=== PATIENT | female | born 1965 | race Caucasian/White ===

== ENCOUNTER 2018-03-25 09:35 | Emergency (ER) | payer OTHER ==
--- NOTE | 2018-03-25 10:26 | ED Physician Documentation ---
PD HPI UPPER EXT INJURY - Stated complaint Stated Complaint: GLF/R SHOULDER INJ - Chief complaint Chief Complaint: Ext Problem - History obtained from History obtained from: Patient, Family - History of Present Illness Location: Right, Shoulder Type of injury: Fall Where injury occurred: Home Timing - onset: Last night Timing - duration: Hours Timing - details: Abrupt onset, Still present Improved by: Rest, Immobilization Worsened by: Moving, Palpating Associated symptoms: No: Weakness, Numbness, Tingling, Swelling Contributing factors: No: Anticoagulated Similar symptoms before: Has not had sx before Recently seen: Not recently seen - Additonal information Additional information: 52-year-old woman was walking out of her washroom when she fell forward onto her right arm and she complains of pain in her proximal humerus and pain if she tries to move the arm at all. She has normal sensation distally she states she also hurt her chest wall when she fell and she did not get knocked out. She was unable to sleep last night secondary to pain anytime she moved around. Review of Systems Constitutional: denies: Fever, Chills Eyes: denies: Decreased vision Ears: denies: Ear pain Nose: denies: Congestion Throat: denies: Sore throat Cardiac: reports: Chest pain / pressure. denies: Palpitations Respiratory: denies: Dyspnea, Cough GI: denies: Abdominal Pain, Nausea, Vomiting : denies: Dysuria, Frequency Skin: denies: Rash Musculoskeletal: reports: Extremity pain. denies: Neck pain, Back pain Neurologic: denies: Generalized weakness, Focal weakness, Numbness PD PAST MEDICAL HISTORY - Present Medications Home Medications: Ambulatory Orders Medication Instructions Recorded Confirmed Acetaminophen 03/25/18 Hydrocodone/Acetaminophen 1 - 2 each PO Q6H PRN #14 tablet 03/25/18 [Hydrocodon-Acetaminophen 5-325] - Allergies Allergies/Adverse Reactions: Allergies Allergy/AdvReac Type Severity Reaction Status Date / Time codeine AdvReac Nausea Verified 03/25/18 10:03 PD ED PE NORMAL - Vitals Vital signs reviewed: Yes (hypertensive ) - General General: Alert and oriented X 3, No acute distress, Well developed/nourished, Other (middle aged woman holding her right arm in flexion at her side. ) - HEENT HEENT: Atraumatic, PERRL, EOMI - Neck Neck: Supple, no meningeal sign, No bony TTP - Cardiac Cardiac: RRR, No murmur - Respiratory Respiratory: No respiratory distress, Clear bilaterally, Other (There is pain to palpation of the chest wall anteriorly ) - Abdomen Abdomen: Soft, Non tender - Back Back: No CVA TTP, No spinal TTP - Derm Derm: Normal color, Warm and dry, No rash - Extremities Extremities: No deformity, No edema, Other (There is point tenderness to palpation of the right arm and with any movement of the arm. ) - Neuro Neuro: Alert and oriented X 3, outbound sales consultant 2-12 intact, No motor deficit, No sensory deficit, Normal speech Eye Opening: Spontaneous Motor: Obeys Commands Verbal: Oriented GCS Score: 15 - Psych Psych: Normal mood, Normal affect Results - Vitals Vitals: Vital Signs - 24 hr 03/25/18 09:58 Temperature 36.0 C L Heart Rate 53 L Respiratory 16 Rate Blood Pressure 146/86 H O2 Saturation 97 Oxygen O2 Source Room air - Rads (name of study) right shoulder Radiology: Prelim report reviewed (Impression: No fracture or dislocation.), EMP read indepedently, See rad report 2 veiw chest Radiology: Prelim report reviewed, EMP read indepedently, See rad report PD MEDICAL DECISION MAKING - ED course Complexity details: reviewed results, re-evaluated patient, considered differential, d/w patient, d/w family ED course: 52-year-old female with a ground-level fall onto her right side has sprained her right shoulder there is no evidence for fracture of the proximal humerus she is placed into a sling. She also contused her chest wall and there is no evidence of fracture of the sternum on plain film. Departure - Departure Disposition: 01 Home, Self Care Clinical Impression: Sprain of right shoulder Qualifiers: Encounter type: initial encounter Shoulder sprain type: unspecified sprain Qualified Code(s): S43.401A - Unspecified sprain of right shoulder joint, init ial encounter Contusion, chest wall Qualifiers: Encounter type: initial encounter Laterality: unspecified laterality Qualified Code(s): S20.219A - Contusion of unspecified front wall of thorax, initial encounter Condition: Stable Instructions: ED Contusion Chest Wall, ED Sprain Shoulder Follow-Up: [facility] [Provider Group] [facility] [Provider Group] [facility] [Provider Group] Prescriptions: Hydrocodone/Acetaminophen [Hydrocodon-Acetaminophen 5-325] 1 - 2 each PO Q6H PRN #14 tablet PRN Reason: pain
--- NOTE | 2018-03-25 11:01 | XRAY Report ---
Reason: fall Procedure Date: 03/25/2018 Accession Number: [id number] / [id number] Procedure: XR - Shoulder 3 View RT CPT Code: FULL RESULT: EXAM: RIGHT SHOULDER RADIOGRAPHY EXAM DATE: 03/25/2018 10:49 AM. CLINICAL HISTORY: Fall. COMPARISON: None. TECHNIQUE: 3 views. FINDINGS: Bones: Normal. No fracture or bone lesion. Joints: The glenohumeral and acromioclavicular joints are normal. Soft tissues: The visualized hemithorax is unremarkable. No soft tissue swelling. IMPRESSION: No fracture or dislocation. RADIA
--- NOTE | 2018-03-25 11:02 | XRAY Report ---
Reason: fall anterior chest pain Procedure Date: 03/25/2018 Accession Number: [id number] / [id number] Procedure: XR - Chest 2 View X-Ray CPT Code: 29730 FULL RESULT: EXAM: CHEST RADIOGRAPHY EXAM DATE: 03/25/2018 10:49 AM. CLINICAL HISTORY: Fall anterior chest pain. COMPARISON: None. TECHNIQUE: 2 views. FINDINGS: Lungs/Pleura: No focal opacities evident. No pleural effusion. No pneumothorax. Normal volumes. Mediastinum: Heart and mediastinal contours are unremarkable. Other: None. IMPRESSION: No acute cardiopulmonary abnormality. RADIA
[2018-03-25 11:42] VITALS: BP 138/84
== END 2018-03-25 11:42 | disposition home or self-care (01) ==
LOC: ED 09:35 → MERGE 09:35 → ED 11:42
DX: S43.401A Unspecified sprain of right shoulder joint, initial encounter (principal); S20.219A Contusion of unspecified front wall of thorax, initial encounter; W01.0XXA Fall on same level from slipping, tripping and stumbling without subsequent striking against object, initial encounter; Y93.01 Activity, walking, marching and hiking; Y92.009 Unspecified place in unspecified non-institutional (private) residence as the place of occurrence of the external cause
CPT/HCPCS: 71046; 99283

== ENCOUNTER 2018-07-15 12:35 | Outpatient (CLI) | payer OTHER ==
--- NOTE | 2018-07-15 17:06 | MRI Report ---
Reason: SHOULDER PAIN,RIGHT,CHRONIC Procedure Date: 07/15/2018 Accession Number: [id number] / [id number] Procedure: MRI - Shoulder RT W/O CPT Code: FULL RESULT: EXAM: RIGHT SHOULDER MRI WITHOUT CONTRAST EXAM DATE: 07/15/2018 01:56 PM. CLINICAL HISTORY: Chronic right shoulder pain. Previous fall 4 months ago. COMPARISON: None. TECHNIQUE: Multiplanar, multisequence T1-weighted and fluid-sensitive sequences of the shoulder without contrast. Other: None. FINDINGS: Acromioclavicular Region: The acromion is type I. Marginal osteophytes at the distal end of the clavicle and at the medial aspect of the acromion. Tiny subcortical cysts at the medial aspect of the acromion. The coracoacromial and coracoclavicular ligaments are intact. Small amount of fluid at the subacromial subdeltoid bursa. Glenohumeral Region: No subluxation. Moderate sized joint effusion. No loose bodies. The articular cartilage is unremarkable. The middle and inferior glenohumeral humans are intact. Bone Marrow: No fracture, marrow edema or bone lesions. Labrum: There is a linear T2 hyperintense focus at the posterior aspect of the superior labrum. Musculature/Rotator Cuff: There is an approximately 1.5 cm AP by 1.2 cm proximal to distal full-thickness, partial width tear at the distal aspect of the supraspinatus tendon. There is infraspinatus tendinosis. Teres minor tendon is intact. There is an approximately 3 x 3 cm full-thickness, near full width tear of the subscapularis tendon. No edema or fatty atrophy. Biceps Tendon: The long head biceps tendon is dislocated medially from the bicipital groove. There is tendinosis at the long head biceps tendon. Other: The subcutaneous tissues are unremarkable. IMPRESSION: 1. Acromioclavicular joint osteoarthritis. 2. Full-thickness, partial width tear at the distal aspect of the supraspinatus tendon. Infraspinatus tendinosis. Full-thickness, near full width tear of the subscapularis tendon. 3. Medial dislocation of the long head biceps tendon from the bicipital groove which is due to the subscapularis tendon tear and tears of the coracohumeral and superior glenohumeral ligaments. There is also long head biceps tendinosis. 4. T2 hyperintense focus within the posterior aspect of the superior labrum suspicious for degeneration or a tear. 5. Moderate sized glenohumeral joint effusion. RADIA
== END 2018-07-15 12:36 | disposition home or self-care (01) ==
LOC: DI 12:35
PROVIDERS: ATTEND Orthopaedic Surgery Sports Medicine
DX: M19.011 Primary osteoarthritis, right shoulder (principal); M75.101 Unspecified rotator cuff tear or rupture of right shoulder, not specified as traumatic; S43.411A Sprain of right coracohumeral (ligament), initial encounter; S43.491A Other sprain of right shoulder joint, initial encounter; M25.411 Effusion, right shoulder

== ENCOUNTER 2018-08-19 11:55 | Outpatient (CLI) | payer OTHER ==
--- NOTE | 2018-08-30 10:25 | Mammography Report ---
Reason: SCREENING MAMMOGRAM Procedure Date: 08/19/2018 Accession Number: [id number] / [id number] Procedure: [facility] - Screening Mammo Dig Bilat CPT Code: FULL RESULT: EXAM: Screening Mammo Dig Bilat DATE: 08/19/2018 1:00 PM CLINICAL HISTORY: Screening encounter. No reported risk factors. TECHNIQUE: (B) - Bilateral CC and MLO views were obtained. COMPARISON: 03/25/2015 through 05/03/2009. PARENCHYMAL PATTERN: (A) - The breast(s) demonstrate(s) scattered fibroglandular densities. FINDINGS: There are no suspicious masses, calcifications, or areas of distortion. IMPRESSION: Negative examination. BI-RADS category 1. RECOMMENDATION: (ANNUAL) - Recommend routine annual screening mammography. BI-RADS CATEGORY: (1) - Negative. STANDARD QUALIFYING STATEMENTS: 1. This examination was not reviewed with the aid of Computer-Aided Detection (CAD). 2. A negative or benign imaging report should not preclude biopsy if clinically suspicious findings are present. 3. Dense breasts may obscure an underlying neoplasm. 4. This examination was reviewed without the aid of 3D breast imaging (tomosynthesis).
== END 2018-08-19 11:56 | disposition home or self-care (01) ==
LOC: DI 11:55
DX: Z12.31 Encounter for screening mammogram for malignant neoplasm of breast (principal)
CPT/HCPCS: 77067

== ENCOUNTER 2018-08-26 08:00 | Outpatient (CLI) | payer OTHER ==
[2018-08-26 12:49] LABS: BASOPHILS % (AUTO) 0.5 %; EOSINOPHILS # (AUTO) 0.1 10^3/uL (0.0-0.7); EOSINOPHILS % (AUTO) 1.3 %; HGB - HEMOGLOBIN 14.5 g/dL (12.0-16.0); LYMPHOCYTES % (AUTO) 33.6 %; MEAN CORPUSCULAR HEMOGLOBIN 27.9 pg (27.0-31.0); MEAN CORPUSCULAR HGB CONC 31.3 g/dL (32.0-36.0); MEAN PLATELET VOLUME 8.9 fL (7.9-10.8); MONOCYTES # (AUTO) 0.5 10^3/uL (0.0-1.0); MONOCYTES % (AUTO) 7.8 %; NEUTROPHILS # (AUTO) 3.4 10^3/uL (1.5-6.6); NEUTROPHILS % (AUTO) 56.5 %; PLT - PLATELET COUNT 467 10^3/uL (130-450); RED CELL DISTRIBUTION WIDTH 12.3 % (12.0-15.0); WHITE BLOOD COUNT 5.9 x10^3/uL (4.8-10.8)
[2018-08-26 13:01] LABS: ALBUMIN 4.2 g/dL (3.2-5.5); ALBUMIN/GLOBULIN RATIO 1.1 (1.0-2.2); BILIRUBIN,TOTAL 0.7 mg/dL (0.2-1.0); CALCIUM 9.5 mg/dL (8.5-10.3); CREATININE 0.6 mg/dL (0.4-1.0)
== END 2018-08-26 23:59 | disposition home or self-care (01) ==
LOC: LAB 08:00
PROVIDERS: ATTEND Registered Nurse
DX: Z01.810 Encounter for preprocedural cardiovascular examination (principal); M75.101 Unspecified rotator cuff tear or rupture of right shoulder, not specified as traumatic; M75.81 Other shoulder lesions, right shoulder
CPT/HCPCS: 36415; 80053; 85025; 93005

== ENCOUNTER 2018-08-27 12:15 | Outpatient (CLI) | payer OTHER ==
[2018-08-27 17:36] LABS: BASOPHILS % (AUTO) 0.4 %; EOSINOPHILS # (AUTO) 0.1 10^3/uL (0.0-0.7); EOSINOPHILS % (AUTO) 1.3 %; LYMPHOCYTES # (AUTO) 1.9 10^3/uL (1.5-3.5); LYMPHOCYTES % (AUTO) 41.5 %; MEAN CORPUSCULAR HEMOGLOBIN 27.8 pg (27.0-31.0); MEAN CORPUSCULAR HGB CONC 31.3 g/dL (32.0-36.0); MEAN CORPUSCULAR VOLUME 88.9 fL (81.0-99.0); MEAN PLATELET VOLUME 9.3 fL (7.9-10.8); MONOCYTES # (AUTO) 0.4 10^3/uL (0.0-1.0); MONOCYTES % (AUTO) 8.2 %; NEUTROPHILS # (AUTO) 2.2 10^3/uL (1.5-6.6); NEUTROPHILS % (AUTO) 48.4 %; PLT - PLATELET COUNT 441 10^3/uL (130-450); RED BLOOD COUNT 5.03 10^6/uL (4.20-5.40); RED CELL DISTRIBUTION WIDTH 12.6 % (12.0-15.0); WHITE BLOOD COUNT 4.5 x10^3/uL (4.8-10.8)
[2018-08-27 18:05] LABS: CHOLESTEROL 228 mg/dL; HDL CHOLESTEROL 46 mg/dL; LDL CHOLESTEROL,CALCULATED 155 mg/dL; LDL/HDL RATIO 3.4 (<4.4); VLDL CHOLESTEROL 27 mg/dL
[2018-08-27 18:32] LABS: HB2 TOTAL 14.3 g/dL; HEMOGLOBIN A1C 0.58 g/dL; HEMOGLOBIN A1C % 5.9 % (4.6-6.2)
== END 2018-08-27 12:16 | disposition home or self-care (01) ==
LOC: LAB.F 12:15
PROVIDERS: ATTEND Registered Nurse
DX: Z13.9 Encounter for screening, unspecified (principal)
CPT/HCPCS: 36415; 80061; 83036; 83721; 84443; 85025

== ENCOUNTER 2018-08-28 06:11 | Day surgery (SDC) | payer OTHER ==
[2018-08-28] MEDS ORDERED: CEFAZOLIN SODIUM IN 0.9 % NACL 2 GM/100 ML BAG IV ONE (06:31)
[2018-08-28] MEDS ORDERED: LACTATED RINGERS 1,000 ML IV ONE ×2 (06:56→10:15)
[2018-08-28] MEDS ORDERED: ROPIVACAINE 0.5% PF 20 ML AMPULE ONE (06:58)
--- NOTE | 2018-08-28 07:12 | ANESTHESIA ---
Pre-Anesthesia VS, & Labs - Diagnosis R Rotator cuff tear, long head biceps dislocation - Procedure R shoulder scope vs open rotator cuff repair, SAD, biceps tenodesis Vital Signs: Temp Pulse Resp BP Pulse Ox 36.4 C L 51 L 18 137/50 H 98 08/28/18 06:30 08/28/18 06:30 08/28/18 06:30 08/28/18 06:30 08/28/18 06:30 Height 5 ft 2 in Weight (kg) 86.8 kg Body Mass Index 34.7 - NPO >8 hours - Is Patient ?: No - Lab Results Lab results reviewed: Yes Home Medications and Allergies Home Medications: Ambulatory Orders Duloxetine HCl 30 mg PO DAILY 08/26/18 Acetaminophen 1,000 mg PO Q8HR PRN 03/25/18 Duloxetine HCl 30 mg PO DAILY 08/26/18 Allergies/Adverse Reactions: Allergies Allergy/AdvReac Type Severity Reaction Status Date / Time smallpox vaccine,live Allergy Rash Verified 08/26/18 11:33 aspirin AdvReac ringing in Verified 08/26/18 11:33 ears codeine AdvReac Nausea Verified 03/26/18 09:05 cyclobenzaprine AdvReac Nausea Verified 08/26/18 11:33 [From Flexeril] ibuprofen AdvReac causes pain Verified 08/26/18 11:33 Anes History & Medical History - Anesthetic History Anesthesia Complications: reports: No previous complications Family history of Anesthesia Complications: Denies Family history of Malignant Hyperthermia: Denies - Medical History Cardiovascular: reports: None Pulmonary: reports: Sleep apnea, CPAP use Gastrointestinal: reports: GERD Urinary: reports: None Musculoskeletal: reports: Fibromyalgia Endocrine/Autoimmune: reports: None Skin: reports: None Smoking Status: Never smoker - Surgical History Gynecologic: section Exam General: Alert, Oriented x3, Cooperative Dental: WNL Mouth Openin Fingerbreadth Neck Mobility: Normal Mallampati classification: II Thyromental Distance: 4-6 cm Respiratory: Lungs clear, Normal breath sounds Cardiovascular: Regular rate Neurological: Normal speech Mental/Cognitive Status: Alert/Oriented X3, Normal for patient Cognitive Status: Within normal limits Plan Anesthesia Type: General, Interscalene Block Consent for Procedure(s) Verified and Reviewed: Yes Code Status: Attempt Resuscitation ASA classification: 2-Mild systemic disease Is this case an emergency?: No
[2018-08-28] MEDS ORDERED: fentaNYL 100 MCG/2 ML VIAL IVP ONE (07:30)
[2018-08-28] MEDS ORDERED: DEXAMETHASONE 4 MG/ML VIAL IVP ONE (07:30)
[2018-08-28] MEDS ORDERED: ONDANSETRON 4 MG/2 ML VIAL IVP ONE (07:30)
[2018-08-28] MEDS ORDERED: ROCURONIUM 50 MG/5 ML VIAL IVP ONE (07:30)
[2018-08-28] MEDS ORDERED: KETOROLAC 30 MG/ML VIAL IVP ONE (07:30)
[2018-08-28] MEDS ORDERED: SODIUM CHLORIDE 0.9% 10 ML VIAL IV ONE (07:30)
[2018-08-28] MEDS ORDERED: LIDOCAINE-MPF 2% 5 ML VIAL IM ONE (07:30)
[2018-08-28] MEDS ORDERED: PROPOFOL 200 MG/20 ML VIAL IVP ONE (07:30)
[2018-08-28] MEDS ORDERED: MIDAZOLAM 2 MG/2 ML VIAL IVP ONE (07:30)
[2018-08-28] MEDS ORDERED: BUPIVACAINE 0.25% PF 30 ML VIAL ONE (07:33)
[2018-08-28] MEDS ORDERED: BUPIVACAINE 0.25% PF 30 ML VIAL SUBQ ONE ×2 (08:26)
[2018-08-28] MEDS ORDERED: ONDANSETRON 4 MG/2 ML VIAL IVP PRN (10:56)
[2018-08-28] MEDS ORDERED: oxyCODONE 5 MG TABLET PO PRN (10:58)
--- NOTE | 2018-08-28 11:04 | IMMEDIATE POSTOPERATIVE NOTE ---
Immediate Postoperative Note - Procedure Note Procedure Date: 08/28/18 Pre-Op Diagnosis: RIGHT RCT, LH BICEPS SUBLUXATION Procedure: RIGHT SHOULDER SCOPE RCR SUPRA, SUBSCAP, LH BICEPS TENODESIS Post-Op Diagnosis: SAME Primary Surgeon: Garrett PEREYRA Director Religious Education: PRETTY Anesthesia Type: General ET tube, Local, Regional block Findings: ABOVE Complications: No complications Estimated Blood Loss (in cc): 100 Plan of Care: Patient tolerated procedure well instrument and sponge counts correct patient transferred to recovery room in stable condition Patient will follow standard postoperative rotator cuff per protocol for supraspinatus and subscapularis as well as long head bicepS tenodesis protocol
[2018-08-28] MEDS ORDERED: ONDANSETRON 4 MG/2 ML VIAL ONE (11:20)
[2018-08-28 12:19] VITALS: BP 137/78
--- NOTE | 2018-08-28 21:58 | OPERATIVE REPORT ---
DATE OF SERVICE: 08/28/2018 Physician: Hosea Gill MD SURGEON: Hosea Gill MD CREDIT ADMINISTRATOR: None. ANESTHESIA PROVIDER: Lucho Ochoa CRNA. TYPE ANESTHESIA: General anesthesia, endotracheal, with right shoulder regional block under ultrasound guidance, as well as 7 mL of 0.25% plain Marcaine without epinephrine. FLUIDS: 1000 mL lactated Ringer's. ESTIMATED BLOOD LOSS: 100 mL. ORTHOPEDIC IMPLANTS: 5.5 PEEK SwiveLock x2, 8 mm BioComposite SwiveLock x1 and a single 5.5 triple-loaded Arthrex corkscrew. PREOPERATIVE DIAGNOSES 1. Right shoulder supraspinatus rotator cuff tear. 2. Right shoulder subscapularis rotator cuff tear. 3. Right shoulder long head biceps dislocation/subluxation. POSTOPERATIVE DIAGNOSES 1. Right shoulder supraspinatus rotator cuff tear. 2. Right shoulder subscapularis rotator cuff tear. 3. Right shoulder long head biceps dislocation/subluxation. PROCEDURE 1. Right shoulder arthroscopic repair of subscapularis rotator cuff tendon from the glenohumeral joint. 2. Right shoulder arthroscopic long head biceps tenodesis. 3. Right shoulder arthroscopic supraspinatus rotator cuff repair from subacromial space. HISTORY OF PRESENT ILLNESS AND INDICATIONS: Patient is a 53-year-old female with longstanding right shoulder issues, known to have rotator cuff tear, indicated for operative treatment. Please see preoperative clinic discussion for risks, benefits, and alternatives, which were again highlighted with her and her , Salomon, in the preoperative care unit. Their questions were answered. They verbalized understanding of the previous discussion and the discussion today. The patient verbalized her wish to proceed with operative treatment. Informed consent was given. INTRAOPERATIVE FINDINGS: Patient was noted to have significantly dislocated long head biceps groove into the subscapularis, which was retracted towards the glenoid labrum or rim. With freeing up of the subscapularis, it is able to get to the near anatomic footprint and the lesser tuberosity. Biceps ultimately was fixed in the superior aspect of the bicipital groove. A small tear in the supraspinatus anteriorly is fixed with near-anatomic position. Subacromial space had significant arthrosis and bursitis, which was debrided. PROCEDURE On 08/28/2018, patient is identified in the preoperative care unit. She identifies her right shoulder as the operative site. This was signed by the operating surgeon. The patient received preoperative weight-based IV antibiotics. The right shoulder is identified as she has ultrasound-guided regional anesthesia and then brought to the operating room. General anesthesia is administered, and patient is placed on the left side down lateral decubitus position with appropriately placed axillary roll to avoid encumbrance of the axilla. Down leg is gel padded. Beanbag positioner is used. Head, neck, and extremities are placed in anatomically comfortable and safe positions to avoid peripheral nerve stretch compression. At this point, the patient's right upper extremity was draped out, pre-scrubbed with Hibiclens solution, then alcohol, and then prepped and draped in the usual sterile fashion using ChloraPrep solution. Combination of 5, 15, or briefly 20 pounds of traction are used during the different portions of the case. At this point, surgical pause identifies the right shoulder as the operative site. Local anesthesia is infused in the skin anteriorly, posteriorly and laterally. A small incision is made posteriorly. Scope is introduced into the glenohumeral joint. Diagnostic arthroscopy is carried out. Please see operative findings. At this point, anterior portal is created in the rotator interval, such that the biceps could be tagged with a FiberWire suture and then released from its origin in the labrum. At this point, the subscapularis is examined and pulled using kingfisher, pulled laterally, and then freed up using a combination of meniscal shaver in a safe direction, as well as arthroscopic chisel to address soft tissue adhesions anterior and posterior to the tendon, so that it may be mobilized. Once this is adequately mobilized, horizontal mattress sutures x2 are placed using #2 FiberWire into the free edge of the subscapularis. These are for anticipated later repair to the lesser tuberosity. At this point, the humerus is internally rotated. The donor site from the lesser tuberosity is identified and then debrided using a shaver, and then sequential placement of SwiveLocks inferior and superior in the rotator cuff footprint are placed, thereby re-apposing the subscapularis to its near-anatomic footprint. This fixes the tendon well in place, and then one of the additional sutures from the superior anchors again placed through the superior border of the subscapularis using a FastPass Scorpion and then tied for additional fixation. At this point, the joint is copiously irrigated and noted to be free of loose debris, and attention is directed to the subacromial space. Lateral incision is made. A combination of meniscal basket, as well as arthroscopic heating device with appropriate flow is used to debride the fibrosis and bursitis of the subacromial space. Once this is adequately debrided and the rotator cuff is visualized, anterior rotator cuff tear is identified. The long head biceps is identified and ultimately sized up through an auxiliary anterolateral incision. Then debridement of the superior aspect of the bicipital groove is performed, followed by placement of a guide pin, then hand reaming to a size 9, then placing the biceps into the socket in the superior aspect of the bicipital groove using a SwiveLock device, which then is used for interference fixation, with excellent compression fixation there. At this point, excess suture limbs are cut and the biceps noted to be well fixed in the superior aspect of the bicipital groove. At this time, attention is directed towards the supraspinatus, where the footprint is debrided. The free edge is debrided using meniscal shaver, at which point a single anchor is placed in the middle of this small tear and two simple sutures and one horizontal mattress suture used for fixation of this. These are tied in reverse order, thereby re-apposing the supraspinatus to its near-anatomic footprint with good fixation. Suture limbs are cut. The subacromial space is examined and noted to have good fixation of the rotator cuff with good range of motion. Copious irrigation is performed, hemostasis achieved. Instruments removed. Arthroscopic portals are closed using interrupted nylon suture. Skin is washed, dried. Local anesthesia is infused around the skin. Xeroform dressing is applied, dry sterile dressing is applied, micropore tape is applied. Patient tolerated the procedure well. Instrument and sponge counts are correct. Patient is transferred to the recovery room in stable condition; will follow standard postoperative right shoulder rotator cuff repair protocol and long head biceps protocol, with focus on protecting the subscapularis to avoid the passive external rotation beyond zero and avoid any active internal rotation, as well as any active supraspinatus use. She will also avoid active biceps firing. Patient's , Salomon, is contacted in the waiting room, case is discussed, postoperative instructions given. Arthroscopic photos reviewed. His questions are answered, and he verbalizes understanding and satisfaction with the plan as outlined. TD: 08/28/2018 13:34 GERADR
== END 2018-08-28 06:12 | disposition home or self-care (01) ==
LOC: SDS 06:11
PROVIDERS: ATTEND Orthopaedic Surgery Sports Medicine
PROC: 0RHJ44Z Insertion of Internal Fixation Device into Right Shoulder Joint, Percutaneous Endoscopic Approach (ICD-10-PCS; 2018-08-28)
PROC: 0LQ14ZZ Repair Right Shoulder Tendon, Percutaneous Endoscopic Approach (ICD-10-PCS; 2018-08-28)
PROC: 0RHJ44Z Insertion of Internal Fixation Device into Right Shoulder Joint, Percutaneous Endoscopic Approach (ICD-10-PCS; 2018-08-28)
PROC: 0LS14ZZ Reposition Right Shoulder Tendon, Percutaneous Endoscopic Approach (ICD-10-PCS; principal; 2018-08-28 07:30)
DX: M75.101 Unspecified rotator cuff tear or rupture of right shoulder, not specified as traumatic (principal); S46.101D Unspecified injury of muscle, fascia and tendon of long head of biceps, right arm, subsequent encounter; M75.51 Bursitis of right shoulder; G47.30 Sleep apnea, unspecified; Z87.891 Personal history of nicotine dependence
CPT/HCPCS: 29827; 29828; C1713; J0690; J7120

== ENCOUNTER 2018-11-06 11:55 | Day surgery (SDC) | payer OTHER ==
[2018-11-06] MEDS ORDERED: MIDAZOLAM 2 MG/2 ML VIAL IVP ONE (11:56)
[2018-11-06] MEDS ORDERED: fentaNYL 250 MCG/5 ML VIAL IVP ONE (11:56)
[2018-11-06 12:14] LABS: HCG UR QUAL NEGATIVE
[2018-11-06] MEDS ORDERED: LACTATED RINGERS 1,000 ML IV ONE (12:31)
[2018-11-06 14:33] VITALS: BP 122/68
== END 2018-11-06 11:56 | disposition home or self-care (01) ==
LOC: SDS 11:55
PROVIDERS: ATTEND Surgery
PROC: 0DJD8ZZ Inspection of Lower Intestinal Tract, Via Natural or Artificial Opening Endoscopic (ICD-10-PCS; principal; 2018-11-06 13:15)
DX: Z12.11 Encounter for screening for malignant neoplasm of colon (principal); Z80.0 Family history of malignant neoplasm of digestive organs; Z86.010 Personal history of colon polyps; K57.30 Diverticulosis of large intestine without perforation or abscess without bleeding; K64.8 Other hemorrhoids; G47.30 Sleep apnea, unspecified; M79.7 Fibromyalgia; Z87.891 Personal history of nicotine dependence
CPT/HCPCS: 45378; 81025; J7120

== ENCOUNTER 2018-12-31 13:33 | Outpatient (CLI) | payer OTHER ==
[2018-12-31 14:30] VITALS: BP 138/86
--- NOTE | 2018-12-31 14:30 | SLEEP CARE CONSULTATION ---
Information from patient questionnaire entered by Denise Rodriguez. I have reviewed and concur with the information entered by Denise Rodriguez. This document represents the service I personally performed and the decisions made by me, Mohit Maldonado MD, [facility]. History of Present Illness Reason for Visit: New patient, Previously diagnosed sleep apnea, sleep apnea on CPAP therapy Chief Complaint: reports: Other ([facility]EW PRESCRIPTION) Duration of Symptoms: diagnosed 2012 Usual bedtime: 1251-2483 Time it takes to fall asleep: 15-30 minutes Snores at night: Yes Observed to quit breathing while asleep: No Sleeps alone due to snoring: No Number of times waking at night: 0 Toss, Turn, or Twitch while sleeping: No Recalls having dreams: Yes Usually gets out of bed at: 0800 Feels refreshed in the morning: Yes Morning headache: No Sleepy or fatigued during the day: No Ever fallen asleep while driving: No Takes day naps: No Dreams during day naps: No Prior sleep studies: Yes Year and Where: 2012 [facility] [place], [place] Additional HPI information: I had the pleasure of seeing Ms. Roe today regarding obstructive sleep apnea-hypopnea. As you know, she is a 53 year old lady who was diagnosed with the sleep-disordered breathing at [facility] in [place], [place] in 2012. The sleep study report is not available. The patient recalls being told she quit breathing more than 60 times an hour. She was prescribed a CPAP device set at 9 cmH2O. She uses the Respironics REMstar Auto (System One 60 Series) device every night and all night. The compliance data show usage in 179 out of the past 180 nights, averaging 7.6 hours a night. The residual AHI is 0.5 and average air leak is 0 L/minute. She wears a [place] nasal mask. She gets his supplies from a [employer]. She finds the treatment very beneficial. 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 Patient is and lives in [place]. Have you smoked in the past 12 months: No Alcohol use: Yes Alcohol amount and frequency: 2/week Caffeine use: Yes Caffeine amount and frequency: 2/day Family History Family history of sleep disordered breathing: Yes Family Hx Sleep Apnea: Sibling: Sleep apnea - Treated Allergies and Home Medications Drug allergies reviewed: Yes Home medication list reviewed: Yes Review of Systems Cardiovascular: denies: high blood pressure, palpitations, chest pain, irregular heart rate or pulse, leg or foot swelling, have to sleep sitting up, other Respiratory: denies: shortness of breath, wheeze, sputum production, chronic cough, other Gastrointestinal: denies: heartburn, difficulty swallowing, nausea, vomitting, diarrhea, abdominal pain, other Urinary: denies: incontinence, frequency, urgency, impotence, other Neurological: denies: headaches, seizure, head trauma, disorientation, speech dysfunction, gait or balance problems, fainting or unconsciousness, other Psychiatric: denies: Attention Deficit Hyperactivity, anxiety, depression, mood disorder, claustrophobia, other Ear/Nose/Throat: denies: nasal congestion, sinus problems, nose bleeds, dry mouth/throat, hoarseness, injury to nose, tonsillectomy, wisdom teeth removed, other Endocrine: denies: thyroid disease, history of goiter, sluggishness, too hot or cold, excessive thirst, increased appetite, increased urination, unexplained weakness, other Musculoskeletal: reports: mobility problems (shoulder surgery) Immunologic: reports: other (seasonal) Physical Exam Vital signs obtained and entered by: Dr. Maldonado Blood Pressure: 138/86 Cuff size: regular Heart Rate: 67 O2 Saturation: 98 Height: 5 ft 2 in Weight: 196 lb Body Mass Index: 35.8 BMI Classification: Obesity Class 2 Neck circumference: 15 Mood/affect: normal HEENT: No craniofacial malformation Nostrils: patent to airflow Turbinates: normal Septum: midline Mouth and throat: narrow oropharynx Soft palate: long Hard palate: normal Uvula: normal Uvula visualization: 25% Mallampati Class III Tongue: enlarged in size with teeth cunha on lateral edges Tonsils: small Chin and jaw: normal size and position Neck: normal w/o lymphadenopathy or thyromegaly Heart: regular rate and rhythm Lungs: clear bilaterally Abdomen: soft, non-tender Extremities: no edema or clubbing Neurologic: intact, no focal deficits Impression and Plan IMPRESSION: 1. Obstructive Sleep Apnea-Hypopnea Syndrome, as previously diagnosed. The severity is unknown. The patient has excellent compliance. The current pressure setting appears effective and comfortable. Her mask fits well. Narrow oropharynx and obesity are common predisposing factors for obstructive sleep apnea-hypopnea syndrome. Because the CPAP is now older than the useful life of 5 years, I will order the patient a new one and make it an autoCPAP set between 6 and 10 cmH2O. Plan: 1. Prescription made for an autoCPAP, heated humidifier, and related supplies. 2. Try Respironics DreamWear nasal cushion mask and ResMed N30i mask 3. Try to lose weight. 4. Return for follow up after one month on the new machine. I spent 100% of this 20 minute visit face to face with the patient with greater than 50% of this was spent time counseling the patient and coordination of care.
== END 2018-12-31 13:34 | disposition home or self-care (01) ==
LOC: SC 13:33
PROVIDERS: ATTEND Internal Medicine Pulmonary Disease
DX: G47.33 Obstructive sleep apnea (adult) (pediatric) (principal); E66.9 Obesity, unspecified; Z68.35 Body mass index [BMI] 35.0-35.9, adult
CPT/HCPCS: 99203; 99212